=== PATIENT | male | born 1995 | race Caucasian/White ===

== ENCOUNTER 2024-09-28 11:20 | Outpatient (CLI) | payer MEDICAID, SELFPAY ==
--- NOTE | 2024-09-28 13:01 | DI.RAD_ITS ---
Exam(s) XR LUMBAR SPINE COMPLETE EXAM: XR LUMBAR SPINE COMPLETE CLINICAL HISTORY: Lumbar back pain, M54.50, backache, chronic back pain due to injury. TECHNIQUE: 2D digital imaging was performed. Five views. COMPARISON: No exams were available for comparison FINDINGS: BONES: No fracture or destructive lesion. Vertebral body heights are maintained. No facet hypertro phy identified . DISKS: Intervertebral disc spaces are maintained. ALIGNMENT: Lumbar spinal alignment is within normal limits. SOFT TISSUE: Normal. IMPRESSION: Unremarkable radiographs of the lumbar spine. DATA REPOSITORY: RADIATION DOSE DELIVERED:
--- NOTE | 2024-09-28 13:01 | DI.RAD_ITS ---
Exam(s) XR THORACIC SPINE COMPLETE EXAM: XR THORACIC SPINE COMPLETE CLINICAL HISTORY: Thoracic back pain, M54.6, backache, chronic back pain due to injury. TECHNIQUE: 2D digital imaging was performed. Three views. COMPARISON: No exams were available for comparison FINDINGS: BONES: There is no fracture or destructive lesion. The vertebral bodies and posterior elements are un remarkable. ALIGNMENT: Mild dextroscoliosis at the lumbosacral junction. DISKS: Minimal endplate osteophytes in the mid thoracic region. SOFT TISSUE: Visualized lungs are clear. The heart size is normal. IMPRESSION: Mild scoliosis. DATA REPOSITORY: RADIATION DOSE DELIVERED:
--- NOTE | 2024-09-28 13:01 | DI.RAD_ITS ---
Exam(s) XR CERVICAL SPINE COMP 4-5V EXAM: XR CERVICAL SPINE COMP 4-5V CLINICAL HISTORY: Dorsalgia, M54.9, backache, chronic back pain due to injury. TECHNIQUE: 2D digital imaging was performed. Five views were performed. COMPARISON: No exams were available for comparison FINDINGS: Exam is mildly limited by artifact from the patient's hair. BONES: No fracture or destructive lesion. Vertebral bodies are unremarkable. No visible neural fora jacque narrowing. DISKS: Intervertebral disc spaces are maintained. ALIGNMENT: Cervical spinal alignment is within normal limits. Some straightening of the normal cervi deanna lordosis could be secondary to muscle spasm. The odontoid and atlantoaxial articulations are nor mal. SOFT TISSUE: Normal. The lung apices are clear. IMPRESSION: Unremarkable radiographs of the cervical spine. DATA REPOSITORY: RADIATION DOSE DELIVERED:
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
[2024-09-28 16:13] LABS: HCT 45.5 % (40.0-50.0); HGB 15.2 g/dL (13.5-17.5); MCH 28.3 pg (27.0-33.0); MCHC 33.4 % (32.0-36.0); MCV 85 fL (80-95); MPV 10.4 fL (8.0-11.0); Platelet Count 244 10^3/uL (130-400); RBC 5.38 10^6/uL (4.36-5.78); RDW 12.3 % (11.8-14.1); RDW-SD 37.7 fL
[2024-09-28 17:28] LABS: ALT 21 U/L (16-63); AST 11 U/L (15-37); Albumin 4.8 g/dL (3.4-5.0); Alkaline Phosphatase 82 U/L (46-116); Anion Gap 5.3 mmol/L (3-11); BUN 19 mg/dL (7-18); Bilirubin, Direct 0.1 mg/dL (0.0-0.2); Bilirubin, Total 0.36 mg/dL (0.2-1.0); CO2 32.7 mmol/L (21.0-32.0); CREATININE 1.2 mg/dL (0.70-1.30); Calcium 10.1 mg/dL (8.5-10.1); Chloride 102 mmol/L (98-107); Estimated GFR 84.48 (mL/min/1.73m2); Glucose 75 mg/dL (74-106); Potassium 4.8 mmol/L (3.5-5.1); Sodium 140 mmol/L (136-145); Total Protein 7.7 g/dL (6.4-8.2)
[2024-10-01 11:57] LABS: Hepatitis A Antibody IgM Negative (Negative); Hepatitis B Core Antibody Negative (Negative); Hepatitis B surface Ag Negative (Negative); Hepatitis C Ab w Rflx HCV PCR Reactive (Negative)
[2024-10-01 20:53] LABS: HCV Genotype Undetected (Undetected)
[2024-10-03 14:59] LABS: HCV RNA Qualitative Undetected (Undetected)
== END 2024-09-28 11:40 ==
LOC: DI 11:22
PROVIDERS: PCP Nurse Practitioner Family; Visit Provider Nurse Practitioner Family
DX: M54.6 Pain in thoracic spine; M54.9 Dorsalgia, unspecified; G89.21 Chronic pain due to trauma; M25.512 Pain in left shoulder; B19.20 Unspecified viral hepatitis C without hepatic coma
CPT/HCPCS: 36415; 80048; 80076; 85027; 86704; 86709; 86803; 87340; 87522; 72050; 72072; 72110; 73030; 87521

== ENCOUNTER 2024-10-16 16:40 | Outpatient (CLI) | payer MEDICAID, SELFPAY ==
[2024-10-16 16:58] LABS: ESR < 1 mm/hr (0-15)
[2024-10-16 17:56] LABS: C-Reactive Protein < 0.50 mg/dL (<or=0.5)
[2024-10-17 17:58] LABS: Rheumatoid Factor <8.6 IU/mL (<12.0)
[2024-10-18 10:12] LABS: Cyclic Citrullinated Peptide <2.5 U/mL (<5.0)
[2024-10-18 11:55] LABS: ANA Interpretation Negative (Negative)
[2024-10-19 10:20] LABS: Myeloperoxidase Ab IgG <0.2 U (>=0.4); Proteinase 3 Ab (PR3) <0.2 U
== END 2024-10-16 16:41 | disposition home or self-care (01) ==
LOC: LBO 16:42
PROVIDERS: PCP Nurse Practitioner Family; Visit Provider Nurse Practitioner Family
DX: M54.9 Dorsalgia, unspecified (principal); M54.50 Low back pain, unspecified; M54.6 Pain in thoracic spine; G89.29 Other chronic pain
CPT/HCPCS: 85652; 86200; 83516; 86038; 86140; 86431

== ENCOUNTER 2024-10-29 06:03 | Emergency (ER) | payer MEDICAID, SELFPAY ==
[2024-10-29] VITALS (16 sets, daily range): BP systolic 94–143; BP diastolic 52–99; PULSE 82–127; RESP 12–29; TEMP 36.8; O2SAT 94–100
[2024-10-29] MEDS: Ondansetron 4 MG/2 ML VIAL IVP (06:25)
[2024-10-29] MEDS: Normal Saline 1,000 ML 1000 ML IV ×2 (06:26→07:08)
[2024-10-29 06:27] LABS: Abs Immature Grans 0.02 10^3/uL (0.0-0.06); Absolute Basophil Count 0.06 10^3/uL (0.0-0.2); Absolute Eosinophil Count 0.06 10^3/uL (0.0-0.7); Absolute Lymphocyte Count 0.79 10^3/uL (1.2-3.4); Absolute Neutrophil Count 6.81 10^3/uL (1.2-6.7); Basophils % 0.7 %; Eosinophils % 0.7 %; HCT 49.7 % (40.0-50.0); Immature Grans % 0.2 %; Lymphocytes % 9.3 %; MCH 28.5 pg (27.0-33.0); MCHC 34.2 % (32.0-36.0); MCV 83 fL (80-95); Monocytes % 9.4 %; Neutrophils % 79.7 %; Platelet Count 285 10^3/uL (130-400); RBC 5.96 10^6/uL (4.36-5.78); RDW 12.8 % (11.8-14.1); RDW-SD 38.7 fL; WBC 8.54 10^3/uL (4.4-10.8)
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
[2024-10-29] MEDS: Metoclopramide 10 MG/2 ML VIAL IVP (06:34)
[2024-10-29] MEDS: Pantoprazole 40 MG VIAL IVP (06:34)
[2024-10-29 06:43] LABS: ALT 21 U/L (16-63); AST 10 U/L (15-37); Albumin 4.8 g/dL (3.4-5.0); Alkaline Phosphatase 84 U/L (46-116); Anion Gap 16.3 mmol/L (3-11); BUN 22 mg/dL (7-18); Bilirubin, Total 1.08 mg/dL (0.2-1.0); CO2 26.7 mmol/L (21.0-32.0); CREATININE 1.5 mg/dL (0.70-1.30); Calcium 10.6 mg/dL (8.5-10.1); Chloride 99 mmol/L (98-107); Estimated GFR 64.63 (mL/min/1.73m2); Glucose 136 mg/dL (74-106); Lipase 14 U/L (<78); Magnesium 1.4 mg/dL (1.8-2.4); Potassium 3.5 mmol/L (3.5-5.1); Sodium 142 mmol/L (136-145); Total Protein 8.3 g/dL (6.4-8.2)
[2024-10-29] MEDS: diphenhydrAMINE 50 MG/ML VIAL 25 MG IVP (06:55)
[2024-10-29] MEDS: MAGNESIUM SULFATE 2 GM/50 ML BAG IV_INF (07:03)
[2024-10-29 07:17] LABS: COVID-19 PCR Negative (Negative); Influenza A PCR Negative (Negative); Influenza B PCR Negative (Negative); RSV PCR Negative (Negative)
[2024-10-29 07:18] LABS: Source Nasopharynx
[2024-10-29] MEDS: Ondansetron O.D.T. 4 MG TABEF, 3 TABS/BTL PO (07:37)
== END 2024-10-29 08:13 | disposition home or self-care (01) ==
PROVIDERS: Emergency Provider Student in an Organized Health Care Education/Training Program; PCP Nurse Practitioner Family
DX: R11.2 Nausea with vomiting, unspecified (principal); Z59.82 Transportation insecurity; Z59.89 Other problems related to housing and economic circumstances; F17.290 Nicotine dependence, other tobacco product, uncomplicated; R19.7 Diarrhea, unspecified
CPT/HCPCS: 80053; 83690; 87637; 96365; 96375; 99284; 83735; 85025; 99283; J1200; J2405; J2470; J2765; J3475

== ENCOUNTER 2025-05-14 18:28 | Emergency (ER) | payer MEDICAID, SELFPAY ==
[2025-05-14 18:29] VITALS: BP 133/106; PULSE 130; RESP 15; TEMP 37; O2SAT 99
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
--- NOTE | 2025-05-14 18:45 | RT.EKG_ITS ---
APPROVED REPORT Exam: Resting ECG Reason for Exam: tachycardia Patient Location: E HR:102 bpm ECG Measurements Heart Rate 102 AXIS MN 148 P 70 QRSd 89 QRS 44 QT 312 T 57 QTc 407 Conclusion Sinus tachycardia...rate> 99 ST elev, probable normal early repol pattern...ST elevation, age<55 Normal [place] I have reviewed and interpreted ECG and agree with software generated interpretation.
[2025-05-14 18:46] VITALS: BP 133/106; PULSE 130; RESP 15; TEMP 37; O2SAT 99
[2025-05-14 19:21] LABS: Abs Immature Grans 0.01 10^3/uL (0.0-0.06); HCT 44.8 % (40.0-50.0); HGB 15.4 g/dL (13.5-17.5); Immature Grans % 0.1 %; MCH 28.5 pg (27.0-33.0); MCHC 34.4 % (32.0-36.0); MCV 83 fL (80-95); MPV 10.4 fL (8.0-11.0); Platelet Count 246 10^3/uL (130-400); RBC 5.40 10^6/uL (4.36-5.78); RDW 12.1 % (11.8-14.1); RDW-SD 36.8 fL; WBC 8.30 10^3/uL (4.4-10.8)
[2025-05-14] MEDS: Famotidine 20 MG/2 ML VIAL IVP (19:31)
[2025-05-14 19:32] VITALS: BP 119/84; PULSE 99; RESP 16; TEMP 36.3; O2SAT 96
[2025-05-14 19:34] LABS: ALT 18 U/L (16-63); AST 10 U/L (15-37); Albumin 5.0 g/dL (3.4-5.0); Alkaline Phosphatase 91 U/L (46-116); Anion Gap 8.9 mmol/L (3-11); BUN 13 mg/dL (7-18); Bilirubin, Total 0.8 mg/dL (0.2-1.0); CO2 31.1 mmol/L (21.0-32.0); Calcium 9.8 mg/dL (8.5-10.1); Chloride 102 mmol/L (98-107); Estimated GFR 93.77 (mL/min/1.73m2); Glucose 107 mg/dL (74-106); Lipase 14 U/L (<78); Magnesium 1.8 mg/dL (1.8-2.4); Potassium 3.7 mmol/L (3.5-5.1); Sodium 142 mmol/L (136-145); Total Protein 8.0 g/dL (6.4-8.2)
[2025-05-14] MEDS: Pantoprazole 40 MG VIAL IVP (19:34)
[2025-05-14] MEDS: Ondansetron 4 MG/2 ML VIAL IVP (19:34)
[2025-05-14] MEDS: Normal Saline 1,000 ML 1000 ML IV (19:36)
[2025-05-14 21:12] VITALS: BP 94/69; PULSE 89; RESP 19; TEMP 35.8; O2SAT 99
== END 2025-05-14 21:14 | disposition home or self-care (01) ==
PROVIDERS: Emergency Provider Emergency Medicine; PCP Nurse Practitioner Family
DX: R11.2 Nausea with vomiting, unspecified (principal); F32.A Depression, unspecified; R10.13 Epigastric pain
CPT/HCPCS: 99284; 99283; 80053; 83690; 93005; 83735; 85025; 93010; J2405; J2470

== ENCOUNTER 2025-05-16 14:42 | Outpatient (CLI) | payer MEDICAID, SELFPAY ==
--- NOTE | 2025-05-16 14:30 | DI.RAD_ITS ---
Exam(s) XR HAND RT COMPLETE EXAM: XR HAND RT COMPLETE CLINICAL HISTORY: Right hand injury/swelling, injury, swelling, S69.91XA, M79.89. TECHNIQUE: 2D digital imaging was performed. Three views. COMPARISON: No exams were available for comparison FINDINGS: BONES: There is a fracture extending transversely through the base of the 5th metacarpal which appears subacute. There is some callus formation around the fracture site. There is mild ventral angulation. There may be mild comminution with a fragment seen ventrally. No additional fractures are identified no bony destructive lesion is seen. JOINTS: No dislocation present. SOFT TISSUE: Normal. IMPRESSION: Subacute fracture of the base of the 5th metacarpal. DATA REPOSITORY: RADIATION DOSE DELIVERED:
== END 2025-05-16 15:02 ==
LOC: DI 14:42
PROVIDERS: PCP Nurse Practitioner Family; Visit Provider Family Medicine
DX: S62.316A Displaced fracture of base of fifth metacarpal bone, right hand, initial encounter for closed fracture (principal); M79.89 Other specified soft tissue disorders; X58.XXXA Exposure to other specified factors, initial encounter
CPT/HCPCS: 73130

== ENCOUNTER 2025-06-13 12:37 | Outpatient (CLI) | payer MEDICAID, SELFPAY ==
--- NOTE | 2025-06-13 12:30 | RT.EKG_ITS ---
APPROVED REPORT Exam: Resting ECG Reason for Exam: racing heart beat Patient Location: O HR:92 bpm ECG Measurements Heart Rate 92 AXIS VA 141 P 72 QRSd 89 QRS 45 QT 321 T 46 QTc 398 Conclusion Sinus rhythm...normal P axis, V-rate 50- 99 Normal Electrocardiogram
== END 2025-06-13 12:38 | disposition home or self-care (01) ==
LOC: DI.KIM 12:38
PROVIDERS: PCP Nurse Practitioner Family; Visit Provider Family Medicine
DX: R00.0 Tachycardia, unspecified (principal)
CPT/HCPCS: 93010

== ENCOUNTER 2025-06-27 11:12 | Outpatient (RCR) | payer MEDICAID, SELFPAY | END 2025-07-05 23:59 | disposition home or self-care (01) | LOC: CARDOPNVT 11:12 | PROVIDERS: PCP Nurse Practitioner Family; Visit Provider Internal Medicine Cardiovascular Disease | CPT/HCPCS: 93225 ==